=== PATIENT | male | born 1955 | race Caucasian/White ===

== ENCOUNTER 2016-09-11 08:49 | Emergency (ER) | payer OTHER ==
[~2016-09-11] VITALS: Ht 185.4 cm; Wt 117.9 kg
[2016-09-11] MEDS ORDERED: ASPIRIN81 MG PO (10:28)
[2016-09-11] MEDS ORDERED: CELEXA20 MG PO (10:28)
[2016-09-11] MEDS ORDERED: KEPPRA500 MG PO (10:29)
[2016-09-11] MEDS ORDERED: PRINIVIL10 MG PO (10:29)
[2016-09-11] MEDS ORDERED: ZOCOR20 MG PO (10:30)
== END 2016-09-11 10:50 | disposition short-term general hospital (02) ==
LOC: ER 08:49
PROC: 0HQ1XZZ Repair Face Skin, External Approach (ICD-10-PCS; principal; 2016-09-11)
DX: S01.81XA Laceration without foreign body of other part of head, initial encounter (principal); R55 Syncope and collapse; S00.31XA Abrasion of nose, initial encounter; Z79.82 Long term (current) use of aspirin; Z79.899 Other long term (current) drug therapy; F32.9 Major depressive disorder, single episode, unspecified; I10 Essential (primary) hypertension; M19.90 Unspecified osteoarthritis, unspecified site; Z86.73 Personal history of transient ischemic attack (TIA), and cerebral infarction without residual deficits; Z87.442 Personal history of urinary calculi; E78.00 Pure hypercholesterolemia, unspecified; W18.30XA Fall on same level, unspecified, initial encounter

== ENCOUNTER → 2016-09-26 | Outpatient (CLI) | payer OTHER ==
[~2016-09-26] MED LIST: ASPIRIN81 MG PO; CELEXA20 MG PO; KEPPRA500 MG PO; PRINIVIL10 MG PO; ZOCOR20 MG PO
== END | disposition short-term general hospital (02) ==
LOC: CLORTH 10:28
DX: S46.012A Strain of muscle(s) and tendon(s) of the rotator cuff of left shoulder, initial encounter (principal); M19.012 Primary osteoarthritis, left shoulder